=== PATIENT | female | born 1985 | race Caucasian/White ===

== ENCOUNTER 2020-03-30 12:56 | Outpatient (CLI) | payer SELFPAY ==
[2020-03-31 17:48] LABS: SARS-CoV-2 PCR by NAA Not Detected (NotDetected)
== END 2020-03-30 12:57 | disposition home or self-care (01) ==
LOC: LABBT 12:56
PROVIDERS: ATTEND Urology
DX: Z01.812 Encounter for preprocedural laboratory examination (principal); Z20.822 Contact with and (suspected) exposure to COVID-19; N20.0 Calculus of kidney
CPT/HCPCS: 87635; U0003; U0005